=== PATIENT | male | born 1945 | race Caucasian/White ===

== ENCOUNTER 2021-10-12 04:12 | Emergency (ER) | payer MEDICARE ==
[2021-10-12] MEDS ORDERED: COZAAR25 MG PO (05:08)
== END 2021-10-12 05:42 | disposition home or self-care (01) ==
LOC: FER 04:12
DX: T78.3XXA Angioneurotic edema, initial encounter (principal); I10 Essential (primary) hypertension; E11.9 Type 2 diabetes mellitus without complications; I25.10 Atherosclerotic heart disease of native coronary artery without angina pectoris; Z79.84 Long term (current) use of oral hypoglycemic drugs; Z79.82 Long term (current) use of aspirin; Z79.899 Other long term (current) drug therapy
CPT/HCPCS: 99283

== ENCOUNTER → 2022-01-04 | Day surgery (SDC) | payer MEDICARE ==
[~2022-01-04] VITALS: Ht 172.7 cm; Wt 66.7 kg
[~2022-01-04] MED LIST: ASPIRIN EC81 M1 PO; COZAAR25 MG PO; FLOMAX0.4 MG PO; LOPRESSOR25 MG PO; METFORMIN HCL500 MG PO; NORVASC2.5 MG PO; PROSCAR5 MG PO; SYNTHROID25 MCG PO; ZOCOR20 MG PO
[2022-01-04 09:04] LABS: HCT 45.9 % (42.0-52.0); HGB 15.2 g/dl (13.2-18.0); MCH 32.1 pg (25.0-31.0); MCHC 33.1 g/dL (32.0-36.0); MPV 10.4 fL (6.0-9.5); RBC 4.73 M/uL (4.70-6.00); RDW 13.6 % (11.5-14.0)
[2022-01-04 09:32] LABS: ALBUMIN 3.6 g/dL (3.4-5.0); BILIRUBIN - TOTAL 0.5 mg/dL (0.2-1.0); BUN/CREAT RATIO (CALC) 22.5 RATIO; CREATININE 0.89 mg/dL (0.67-1.17); GLOBULIN (CALCULATION) 3.4 g/dL
== END | disposition home or self-care (01) ==
LOC: FAS 08:21
PROVIDERS: Surgery
DX: K57.30 Diverticulosis of large intestine without perforation or abscess without bleeding (principal); K29.50 Unspecified chronic gastritis without bleeding; K44.9 Diaphragmatic hernia without obstruction or gangrene; B96.81 Helicobacter pylori [H. pylori] as the cause of diseases classified elsewhere; R63.4 Abnormal weight loss; K21.9 Gastro-esophageal reflux disease without esophagitis; I10 Essential (primary) hypertension; E11.9 Type 2 diabetes mellitus without complications; Z68.22 Body mass index [BMI] 22.0-22.9, adult; Z88.8 Allergy status to other drugs, medicaments and biological substances; Z79.82 Long term (current) use of aspirin; Z79.84 Long term (current) use of oral hypoglycemic drugs; Z79.899 Other long term (current) drug therapy
CPT/HCPCS: 36415; 80053; J2704; J7120